=== PATIENT | male | born 1990 | race African-American/Black ===

== ENCOUNTER 2020-10-06 11:02 | Emergency (ER) | payer SELFPAY ==
[~2020-10-06] VITALS: Ht 172.7 cm; Wt 68.2 kg
[2020-10-06 11:17] VITALS: BP 132/67; Ht 172.7 cm; Wt 68.2 kg
[2020-10-06] MEDS ORDERED: BACTRIM DS TAB1 EAC1 PO (15:15)
== END 2020-10-06 16:02 | disposition home or self-care (01) ==
LOC: D.ER 11:02
DX: L02.411 Cutaneous abscess of right axilla (principal)